=== PATIENT | male | born 1960 | race Caucasian/White ===

== ENCOUNTER 2024-02-24 08:10 | Emergency (ER) | payer SELFPAY ==
[2024-02-24] MEDS: LORazepam 2 MG/ML SDV IM ONE (11:27)
[2024-02-24 11:36] LABS: BASOPHILS ABSOLUTE AUTO 0.1 x10-3/uL (0.0-0.3); BASOPHILS PERCENT AUTO 0.9 % (0.3-3.8); EOSINOPHILS PERCENT AUTO 0.5 % (0.1-6.8); HEMATOCRIT 44.3 % (38.3-50.1); LYMPHOCYTES ABSOLUTE AUTO 2.1 x10-3/uL (0.5-4.5); LYMPHOCYTES PERCENT AUTO 23.2 % (15.8-45.3); MEAN CORPUSCULAR HEMOGLOBIN 32.7 pg (27.0-33.3); MEAN CORPUSCULAR VOLUME 96.2 fL (80.8-98.7); MEAN PLATELET VOLUME 9.4 fL (6.7-11.0); MONOCYTES ABSOLUTE AUTO 0.7 x10-3/uL (0.0-1.2); MONOCYTES PERCENT AUTO 7.4 % (5.5-15.2); NEUTROPHILS ABSOLUTE AUTO 6.2 x10-3/uL (1.7-6.9); PLATELET COUNT,PLT 282 x10(3)uL (117-477); RED CELL DISTRIBUTION WIDTH 12.2 % (12.4-15.0); WHITE BLOOD CELL COUNT,WBC 9.1 x10-3/uL (3.2-10.1)
[2024-02-24 11:51] LABS: TSH ULTRASENSITIVE 1.16 IU/mL (0.36-3.74)
[2024-02-24 11:59] LABS: C-REACTIVE PROTEIN < 0.50 mg/dL (<0.50)
[2024-02-24 12:24] LABS: BILIRUBIN,URINE NEGATIVE (NEGATIVE); GLUCOSE,URINE NORMAL (NORMAL); KETONES,URINE NEGATIVE (NEGATIVE); LEUKOCYTE ESTERASE,URINE NEGATIVE (NEGATIVE); NITRITE,URINE NEGATIVE (NEGATIVE); OCCULT BLOOD,URINE NEGATIVE (NEGATIVE); PROTEIN,URINE NEGATIVE (NEGATIVE); UROBILINOGEN,URINE NORMAL (NEGATIVE)
[2024-02-24 12:28] LABS: APPEARANCE,URINE CLEAR (CLEAR); BACTERIA,URINE FEW (NS); COLOR,URINE YELLOW (YELLOW); SQUAMOUS EPITHELIAL CELLS,UR OCCASIONAL (NS,R,O); WBC,URINE 0-5 (0-5)
[2024-02-25 14:44] LABS: FOLATE,SERUM 12.2 ng/mL (>=5.9)
[2024-02-25 19:45] LABS: GAMMA GLUTAMYL TRANSFERASE 26 U/L (8-61)
== END 2024-02-24 13:31 | disposition home or self-care (01) ==
LOC: FB.ED 08:10
DX: F09 Unspecified mental disorder due to known physiological condition (principal); G62.89 Other specified polyneuropathies; F10.20 Alcohol dependence, uncomplicated; I10 Essential (primary) hypertension; Z79.899 Other long term (current) drug therapy
CPT/HCPCS: 36415; 70450; 71045; 81001; 82607; 82746; 82977; 84443; 85025; 85379; 86140; 96372; 99285; G0103; J2060; 99284